=== PATIENT | male | born 1950 | race Caucasian/White ===

== ENCOUNTER 2016-10-26 05:35 | Inpatient (IN) | payer OTHER, MEDICARE ==
[2016-10-26] VITALS (15 sets, daily range): BP systolic 105–134; BP diastolic 54–79; PULSE 73–99; RESP 10–20; O2SAT 95–100
[~2016-10-26] VITALS: Ht 190.5 cm; Wt 99.0 kg
[~2016-10-26 05:35] MED LIST: ACETAMINOPHEN; ASPI-973 PO; CAR8A PO; INSU100V4 SUBQ; INSU200I SQ; LEVO200T6 PO; Lactated Ringer's 1,000 ML IV SCH; NAPR220C11 PO
[2016-10-26] MEDS ORDERED: Vancomycin Inj 1,500 MG in 0.9% Sodium Chloride 500 ML IV ONE (06:00)
[2016-10-26] MEDS ORDERED: CeFAZolin Inj 2 GM in IV Premix 1 EACH IV ONE (06:00)
[2016-10-26] MEDS ORDERED: Bupivacaine Liposome 1.3% 20 mL Inj INFILTRATE ONE (06:00)
[2016-10-26] MEDS ORDERED: Vancomycin 1,000mg/200 mL NS IV ONE (07:14)
[2016-10-26] MEDS ORDERED: Tranexamic Acid 100 mg/mL 10 mL Inj ONE ×2 (07:59→08:02)
[2016-10-26] MEDS ORDERED: Gentamicin 40 mg/mL 2 mL Inj IRRIGATION ONE (08:00)
[2016-10-26] MEDS ORDERED: Lactated Ringer's 500 ML IV PRN (08:56)
[2016-10-26] MEDS ORDERED: Lactated Ringer's 1,000 ML IV SCH (08:56)
--- NOTE | 2016-10-26 08:56 | PCM.HPANE ---
Patient Data Date of Service: Oct 26, 2016 (0725) Surgeon Admitting Provider: Attending Provider:Jonatan Weaver MD Primary Care Physician:Ishmael Jung MD Other Provider:Rishabh Ruff Anesthesia Reason for Visit Left Hip Arthritis Ht/WT & BMI Height (Feet): 6 Height (Inches): 3 Weight (Kilograms): 99 Body Mass Index 27.00 Allergies Coded Allergies: No Known Allergies (Unverified , 10/24/16) Past Anesthesia History Anesthesia History: Denies:: Abnormal Airway, Anesthesia Reactions, Difficult Intubation, Fam Anesthesia Reaction, Malignant Hyperthermia Diabetes History Hx Diabetes?: Yes Type of Diabetes: Type I MRSA MRSA: No Medications Blood Thinner: Aspirin Hypertension Medication: Yes Home Meds Incl Beta Cecy: No Reported Medications [tylenol xtra str] No Conflict Check1,000 Mg Q6H PRN For Pain 10/24/16 Insulin Lispro (Humalog Kwikpen)200 Unit/Ml (3 Ml) Insuln.pfx36-10 Unit SQ PRN sliding scale blood glucose 10/24/16 Doxazosin (Cardura)8 Mg Tablet8 Mg PO HS Ref 0 10/24/16 Insulin Detemir (Levemir U100 Insulin Vial)100 Unit/1 Ml Vial30 Unit SUBQ QPM # 1 VIAL Ref 0 10/24/16 Insulin Detemir (Levemir U100 Insulin Vial)100 Unit/1 Ml Vial15 Unit SUBQ QAM # 1 VIAL Ref 0 10/24/16 Levothyroxine 200 Mcg [id number] Mcg PO DAILY Ref 0 10/24/16 Aspirin 81 Mg Gvpzio69 Mg PO DAILY Ref 0 10/24/16 Naproxen Sodium (Aleve)220 Mg [id number] Mg PO BID 10/24/16 History HEENT History: Positive for:: Hearing Problem Denies:: Abnormal Airway Cataracts (not yet surgically treated ) Difficult Intubation Dysphagia Glaucoma Sinus Problem TMJ Teeth Condition: Missing Teeth Hx of Heart Problems?: Yes Cardiovascular History: Positive for:: Hypertension Denies:: AICD Abdominal Aortic Aneurism Atrial Fibrillation Cardiac Surgery Edema Heart Murmur Irregular Heartbeat Pacemaker Peripheral Vascular Rheumatic Fever Hx of Respiratory Problem?: No Respiratory History: Denies:: Asthma COPD Emphysema Oxygen Administration Pneumonia (as child only) Pulmonary Embolism Tuberculosis Use of C-PAP Machine Use of Inhalers / NEBS Hx Neurologic Problems?: No Neurological History: Denies:: Alzheimer's Disease CVA Headaches Multiple Sclerosis Parkinson's Disease Seizures Hx of GI Problems?: No Gastrointestinal History: Denies:: Cirrhosis Gall Bladder Disease Gastroesphageal Reflux Gastrointestinal Bleeding Heartburn Hepatitis Hiatal Hernia Liver Disease Rectal Bleeding Hx of Problems?: No Genitourinary History: Denies:: Kidney Stones Urinary Tract Infection HX of Peritoneal Dialysis: No Male Hx: Positive for:: Prostate Problems (BPH) Denies:: Scrotal Mass Testicular Surgery Skin History: Denies:: History Skin Disorders? Pressure Ulcers Hx Musculoskeletal Problems?: Yes Musculoskeletal History: Positive for:: Musculoskeletal Trauma (left hip current admission problem) Osteoarthritis Denies:: Back Injury Fibromyalgia Joint Replacement Systemic Lupus Hx of Psycho/Social Problems?: No Psycho Social History: Denies:: Anxiety Hx Depression Hx Surgeries?: Yes (appe, knee scope, tonsil) Hx Any Other Health Problems?: Yes Other History: Positive for:: Thyroid Disease (on meds) Denies:: Cancer History Blood Transfusions: Positive for:: Accept Blood Products? Denies:: Blood Transfusions Hx Diabetes: Yes Hx Alcohol Use: YesAlcoholic Drinks Per Day: 3-4 beers weeklyHx Substance Use : NoHave You Smoked inLast 12 mo: No (chews nicorette gum) Stop/Bang S-Snoring: Do You Snore Loudly: No T-Tired: feel tired, fatigued: No O-Obsered: Observed not breath: No P-Blood Pressure: treated: Yes B- Body Mass Index > 35 kg/m2: No A- Age over 50: Yes N- Neck Large Circumference: No G- Gender Male: Yes MARCO ANTONIO Total Score: 3 Risk Assessment Category Category 1A: Patient has history of documented sleep apnea, and HAS NOT received any narcotic, sedative or anesthesia administration during this stay. Category 1B: Patient has history of documented sleep apnea, and HAS received any narcotic , sedative or anesthesia administration during this stay Category 2: Patient has SUSPECTED Obstructive Sleep Apnea, and HAS received any narcotic , sedative or anesthesia administration during this stay. Category 3: Patient has SUSPECTED Obstructive Sleep Apnea and HAS NOT received narcotic, sedative or anesthesia administration during this stay. Category 4: Outpatient in Procedural Areas with known sleep apnea or who screen positive for High Risk via the STOP/BANG questionnaire. Exam Exam Vital Signs Vital Signs Date Time Temp Pulse Resp B/P Pulse Ox O2 Delivery O2 Flow Rate FiO2 10/26/16 06:27 36.5 74 16 122/54 100 Room Air General Appearance: Alert, Oriented X3, Cooperative, No Acute Distress HEENT/AIRWAY: MP 2 Lungs: Clear to Auscultation Heart: Exam Unremarkable Plan Impression Patient chart reviewed, patient interviewed and anesthestic plan with risks, benefits, and alternatives discussed, and informed consent obtained. NPO Status: 0200 10/26 ASA Physical Status: ASA3 Severe Disease (IDDM) Anesthetic Plan: SAB Bene/Risks/Altern/Consents: Yes HP Complete Prior to Induction: Yes Patrick Omalley MD Oct 26, 2016 08:56
[2016-10-26] MEDS ORDERED: Dexamethasone 4 mg/mL Inj IVPUSH PRN (09:00)
[2016-10-26] MEDS ORDERED: EPHEDrine Sulfate 50 mg/mL Inj IVPUSH PRN (09:00)
[2016-10-26] MEDS ORDERED: Phenylephrine 10,000 mCg/mL Inj IVPUSH PRN (09:00)
[2016-10-26] MEDS ORDERED: MetoCLOpramide 5 mg/mL 2 mL Inj IVPUSH PRN ×2 (09:00→13:45)
[2016-10-26] MEDS ORDERED: fentaNYL-PF 50 mCg/mL 2 mL Inj IVPUSH PRN (09:00)
[2016-10-26] MEDS ORDERED: HYDROmorphone 1 mg/mL Inj IVPUSH PRN (09:00)
[2016-10-26] MEDS ORDERED: Ondansetron 2 mg/mL 2 mL Inj IVPUSH PRN ×2 (09:00→13:45)
[2016-10-26] MEDS ORDERED: Lactated Ringer's 1,000 ML IV ONE ×2 (09:15→10:30)
[2016-10-26] MEDS ORDERED: Vancomycin 1,000 mg Inj IRRIGATION ONE (09:33)
[2016-10-26] MEDS ORDERED: Bupivacaine-MPF 0.25%/EPI 30 mL Inj INJ ONE (10:30)
--- NOTE | 2016-10-26 11:56 | PCM.ANEP1 ---
Post Anesthesia Phase 1 PACU Phase 1 Assessment Date of Service: Oct 26, 2016 (0725) Vital Signs Vital Signs Date Time Temp Pulse Resp B/P Pulse Ox O2 Delivery O2 Flow Rate FiO2 10/26/16 11:45 36.0 80 12 111/64 100 Nasal Cannula 2 10/26/16 11:30 86 13 111/76 100 Nasal Cannula 2 10/26/16 11:15 81 11 114/60 100 Nasal Cannula 2 10/26/16 11:10 79 10 110/60 100 Nasal Cannula 2 10/26/16 11:05 94 14 121/70 99 Nasal Cannula 2 10/26/16 11:00 99 16 129/73 100 Nasal Cannula 4 10/26/16 10:57 36.1 98 20 134/79 100 Nasal Cannula 4 10/26/16 06:27 36.5 74 16 122/54 100 Room Air Anesthetic Administered: GA Level of Alertness: Awake, talking BOWER's with Equal Strength: Yes Pain: No Nausea or Vomiting: No Oxygen Delivery: Room Air Lungs: Clear to Auscultation Dermatome Level: Full Sensation Patrick Omalley MD Oct 26, 2016 11:56
--- NOTE | 2016-10-26 11:56 | PCM.ANEP2 ---
Post Anesthesia Evaluation ASA/CMS Post Anesthesia VS in Patient's Normal Range?: Yes Resp Stable; Airway Patent?: Yes CV Function & Hydration Stable: Yes Mental Status Recovered?: Yes Pain control Satisfactory?: Yes N/V Control Satisfactory?: Yes Patrick Omalley MD Oct 26, 2016 11:56
--- NOTE | 2016-10-26 12:09 | DRSVH ---
PROCEDURE: X-RAY PELVIS ONE OR TWO VIEWS ([id number]) INDICATIONS: CHECK ALIGNMENT TECHNIQUE: 1 view of the lower pelvis acquired. COMPARISON: [facility], , XR PELVIS W LATERAL HIP LT, 08/16/2016, 12:03. FINDINGS: Bones: Patient is status post left hip arthroplasty, with hardware components in expected positions. The hip joint appears congruent. The visualized bony structures appear intact. There is an unchan ged appearance of multiple surgical fixation devices overlying the pelvis. Soft tissues: Overlying postoperative changes are noted. No suspicious soft tissue densities. IMPRESSION: Status post left hip arthroplasty as above. Dictated by: Chrissy Lara M.D. on 10/26/2016 at 11:07 Approved by: Chrissy aLra M.D. on 10/26/2016 at 11:08
[2016-10-26] MEDS ORDERED: Phenylephrine/NS 100 mCg/mL 10 mL Syringe IVPUSH ONE (13:13)
[2016-10-26] MEDS ORDERED: Ondansetron 2 mg/mL 2 mL Inj ONE (13:13)
[2016-10-26] MEDS ORDERED: EPHEDrine/NS 5 mg/mL 5 mL Syringe ONE (13:13)
[2016-10-26] MEDS ORDERED: fentaNYL-PF 50 mCg/mL 2 mL Inj ONE (13:13)
[2016-10-26] MEDS ORDERED: Propofol 10,000 mCg/mL 20 mL Inj ONE (13:13)
[2016-10-26] MEDS ORDERED: Ketorolac 15 mg/mL Inj ONE (13:42)
[2016-10-26] MEDS ORDERED: Magnesium Hydroxide 10 mL Oral Concentration PO PRN (13:45)
[2016-10-26] MEDS ORDERED: Vancomycin Dose per Pharmacist XX ONE (13:45)
[2016-10-26] MEDS ORDERED: diphenhydrAMINE 25 mg Capsule PO PRN (13:45)
[2016-10-26] MEDS ORDERED: Sodium Biphos-Phos 133 mL Enema RECTAL PRN (13:45)
[2016-10-26] MEDS ORDERED: HYDROcodone-APAP 5-325 mg Tablet PO PRN (13:45)
[2016-10-26] MEDS ORDERED: Glucose 40% Oral Gel 15 Gm Tube PO PRN (13:45)
[2016-10-26] MEDS: Lactated Ringer's 1,000 ML IV SCH (14:05)
[2016-10-26] MEDS ORDERED: LORazepam 0.5 mg Tablet PO PRN (14:15)
[2016-10-26] MEDS ORDERED: hydrOXYzine Inj 25 MG/1 mL SDV IM PRN (14:15)
[2016-10-26] MEDS: Ketorolac 15 mg/mL Inj IVPUSH SCH (14:30)
--- NOTE | 2016-10-26 14:51 | PCM.HPMED ---
Subjective Date of Service Oct 26, 2016 Primary Provider: Admitting Physician: Jonatan Weaver MD Primary Care Physician: Ishmael Jung MD Attending Physician: Jonatan Weaver MD Chief Complaint: Status post left total hip arthroplasty, take 1 diabetes mellitus, bpH, hypothyroidism History of Present Illness: This is a 65-year-old male with past medical history of uncontrolled diabetes type I diagnosed 15 years ago, hypothyroidism, BPH presenting after undergoing left total hip arthroplasty. Is currently rather drowsy in the room talking in a very slow paced. He is able to do most of the information however. He states that he fell from the back of a pickup truck on 08/15/2015 and shattered his pelvis and broke his hip. States that this is surgery #2 past one was done in [facility]. He used to have better control over his diabetes prior to his fall. He takes 30 units at night 20 units in the morning of Levemir. Correctional mealtime insulin. He sees Dr. PARTIDA in the [facility] Currently he says that his pain is under control. He denies recent fevers, chills, diarrhea, nausea vomiting, any other infections. All other ROS negative except as stated here. Review of Systems: ROS as mentioned above Allergies Coded Allergies: No Known Allergies (Unverified , 10/24/16) Home Medications Medications include aspirin, naproxen, levothyroxine, Levemir 30 units every afternoon and 20 units every morning plus correctional sliding scale insulin. Cardura for BPH PMH Type I diabetes uncontrolled, BPH, hypothyroidism Surgical History Appendectomy, tonsillectomy, metal in pelvis during a prior surgery? 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, former smoker used to smoke 1 pack per day 3-4 beers a week denies recreational drugs Social History Hx Alcohol Use: Yes Alcoholic Drinks Per Day: 3-4 beers weekly Hx Substance Use: No Living Arrangement: with Family Exam Vital Signs Vital Sign - Last Date Time Temp Pulse Resp B/P Pulse Ox O2 Delivery O2 Flow Rate FiO2 10/26/16 13:42 36.3 85 18 116/71 97 Room Air 10/26/16 11:30 2 Exam Gen.: Laying in bed and appears drowsy HEENT: Normocephalic, atraumatic Neck: Negative for JVD, trachea is midline Heart: Regular rate and rhythm no S3-S4 sounds Lungs: Clear to auscultation no crackles or wheezes Abdomen: Obese, normal bowel sounds nondistended nontender Extremities: Negative for edema Vascular: 2+ dorsalis pedis pulse Neurological: No altered sensation in feet per patient Lab and Diagnostics Labs Laboratory Tests Test 10/26/16 14:20 10/26/16 14:25 Urine Color Straw (YELLOW) Urine Appearance Hazy (CLEAR,HAZY) Urine pH 7.0 (5.0-8.0) Urine Specific [place] 1.015 (1.003-1.035) Urine Protein Negativemg/dL (NEG,TRACE) Urine Glucose (UA) 100mg/dL (NEGATIVE) Urine Ketones 15mg/dL (NEGATIVE) Urine Occult Blood Negative (NEGATIVE) Urine Nitrite Negative (NEGATIVE) Urine Bilirubin Negative (NEGATIVE) Urine Urobilinogen Normalmg/dL (NORMAL) Urine Leukocyte Esterase Negative (NEGATIVE) Urine RBC 0-2/hpf (0-2) Urine WBC 0-5/hpf (0-5) Urine Epithelial Cells Occasional/hpf (NONE-MOD) Urine Crystals None seen (NONE SEEN) Urine Bacteria None/hpf (NONE-FEW) Urine Hyaline Casts None/lpf (NONE) Urine Granular Casts None seen (NONE SEEN) Urine Waxy Casts None seen (NONE SEEN) Urine Red Blood Cell Casts None seen (NONE SEEN) Urine White Blood Cell Casts None seen (NONE SEEN) Urine Mucus None seen (None Seen) Urine Trichomonas None seen (NONE SEEN) Urine Yeast None (NONE SEEN) Urinalysis Comment None Urine Culture Reflexed Not indicated Sodium Level 132mEq/L (134-144) Potassium Level 4.4mEq/L (3.5-5.2) Chloride Level 99mEq/L (97-108) Carbon Dioxide Level 20mmol/L (18-29) Blood Urea Nitrogen 17mg/dL (8-27) Creatinine 0.65mg/dL (0.76-1.27) Estimat Glomerular Filtration Rate 131mL/min (>59) Glucose Level 184mg/dL (60-99) Calcium Level 8.0mg/dL (8.5-10.1) Hold Song Top Tube Received (Received) X-Rays, CTs and MRIs [facility] Diagnostic [place] [address] Patient Name: ROSARIO CURTIS MR#: [id number] Location: [facility] Ordering Phys: Jonatan Weaver MD Date of Service: 10/26/16 1115 PROCEDURE: X-RAY PELVIS ONE OR TWO VIEWS ([id number]) INDICATIONS: CHECK ALIGNMENT TECHNIQUE: 1 view of the lower pelvis acquired. COMPARISON: [facility], CR, XR PELVIS W LATERAL HIP LT, 08/16/2016 , 12:03. FINDINGS: Bones: Patient is status post left hip arthroplasty, with hardware components in expected positions. The hip joint appears congruent. The visualized bony structures appear intact. There is an unchanged appearance of multiple surgical fixation devices overlying the pelvis. Soft tissues: Overlying postoperative changes are noted. No suspicious soft tissue densities. IMPRESSION: Status post left hip arthroplasty as above. Dictated by: Chrissy Lara M.D. on 10/26/2016 at 11:07 Approved by: Chrissy Lara M.D. on 10/26/2016 at 11:08 Assessment & Plan This is a pleasant 65-year-old male with past medical history of an accidental fall in 2016 and some prior orthopedic surgery, DM type II, hypothyroidism, BPH presenting after status post left total hip arthroplasty. Acute conditions: Assessment #1 status post left total hip arthroplasty -- Ortho will be managing his pain and physical therapy -- PT/OT Chronic conditions: DM 1 uncontrolled: -- We will start him on home insulin -20% with moderate sliding scale. His speech to carb counting based insulin tomorrow a.m. -- Before meals at bedtime checks BPH: Continue her medication Hypothyroidism: Continue his medication Disposition: When orthopedic surgery clears him he will go home Pain Evaluation: Adequate Pain Control Resuscitation Status: CPR: Attempt Resuscitation Sandra Randolph DO Oct 26, 2016 14:50
[2016-10-26 15:22] LABS: APPEARANCE,URINE HAZY (CLEAR,HAZY); COLOR,URINE STRAW (YELLOW); OCCULT BLOOD,URINE NEGATIVE (NEGATIVE); UROBILINOGEN,URINE NORMAL (NORMAL)
[2016-10-26] MEDS: CeFAZolin Inj 2 GM in IV Premix 1 EACH IV SCH (16:55)
[2016-10-26] MEDS: Insulin LISPRO 300 Unit/3 mL Inj SUBQ SCH ×2 (18:20→21:09)
[2016-10-26] MEDS: oxyCODONE-Acetamin 5-325 mg Tablet PO PRN (18:26)
[2016-10-26] MEDS: hydrOXYzine Pamoate 25 mg Capsule PO PRN (20:22)
[2016-10-26] MEDS ORDERED: Insulin GLARgine 100 Unit/mL Syringe SUBQ SCH ×2 (21:00)
[2016-10-27] MEDS: CeFAZolin Inj 2 GM in IV Premix 1 EACH IV SCH (00:25)
[2016-10-27 00:33] VITALS: BP 100/60; PULSE 87; RESP 18; O2SAT 96
--- NOTE | 2016-10-27 01:37 | OP ---
[address] [address] OPERATIVE REPORT PATIENT: ROSARIO CURTIS : 1950 MR#: [id number] ADMIT: 10/26/2016 JOB ID: [id number] DATE OF SURGERY: 10/26/2016 PREOPERATIVE DIAGNOSIS(ES): Severe arthritis, left hip status post acetabular fracture with extensive hardware in the left hip. POSTOPERATIVE DIAGNOSIS(ES): Severe arthritis, left hip status post acetabular fracture with extensive hardware in the left hip. PROCEDURES: 1. Left total hip replacement. 2. Deep hardware removal from the left hip. SURGEON: Jonatan Weaver MD DIRECTOR ORANGE: Amparo Aguilar PA-C Publishing Director required due to the complexity of the operation. INDICATIONS: This gentleman has had severe disability related to his hip arthritis. He had a complex acetabular fracture taken care of at [facility], extensive hardware replacement through an anterior approach. The hip then became very arthritic with protrusion and progressive severe arthritis. The patient has failed to respond to conservative treatment, finds the pain intolerable, and wishes to proceed with a total hip replacement and hardware removal as indicated. He understands accepts the potential for risks and complications, which include but are not limited to infection, thromboembolic and neurovascular events, as well as a potential for dislocation, instability, and leg length inequality. Understanding these, he wishes to proceed. DESCRIPTION OF PROCEDURE: The patient was prepped and draped in the usual sterile fashion. A posterolateral approach was made. The hip dissection was carried down. External rotators tagged and released. Capsule T'd, tagged and released. Hip was dislocated. Standard femoral neck cut was made. Progressive reaming of the acetabular component was performed. On initial reaming, metal was encountered. The wound was explored, and a drill bit was encountered, likely broken off from the acetabular fixation. This piece was removed. Progressive reaming to a 61 and two screws were encountered. An impactor was utilized to remove these screws from the acetabulum by impacting them into the ischium. This allowed for further reaming utilizing a 61. A 61 trial was fit. Bone graft was obtained after a central reamer had roughed up the central portion of the wound, which was filled with some soft tissue and irregular cartilaginous substance from the healed fracture. This area was then reverse reamed impacting excellent quality cancellous graft obtained from the femoral head into the area. The cup was firmly seated, and a single screw was utilized with an excellent bite for derotational control and stability for the cup. It was a 62 outer bearing cup. A box osteotome utilized on the femur with progressive broaching, and a 10-mm broach was eventually chosen. The canal fill was checked, and at 15 degrees anteversion. The stem was placed slightly oblique from the long axis of the canal but had a complete fill and was noted to be quite stable. Trial reduction was performed. A 0 neck length, dual mobility cup provided fabulous stability, and the final construct was assembled. The hip was dislocated. Closure was performed with #1 braided nylon for the deep fascia and capsule followed by closure with #2 Quill, 2-0 Vicryl, 3-0 and a 4-0 intracuticular stitch utilized for the skin. Patient was taken to the recovery room in stable condition. Tolerated the procedure well. There were no complications.
[2016-10-27] MEDS: Ketorolac 15 mg/mL Inj IVPUSH SCH (02:43)
[2016-10-27] MEDS ORDERED: Vancomycin Inj 1,250 MG in 0.9% Sodium Chloride 250 ML IV ONE (05:00)
[2016-10-27 05:05] LABS: BASOPHILS % (AUTO) 0.4 % (0-3); EOSINOPHILS % (AUTO) 0.9 % (0-5); Mean Corpuscular Hemoglobin 29.4 pg (27.0-35.0); Mean Corpuscular Volume 87.6 fL (81-100); NEUTROPHILS % (AUTO) 76.7 % (40-74); Platelet Count 135 bil/L (150-400)
[2016-10-27 05:40] VITALS: BP 116/68; PULSE 90; RESP 20; O2SAT 97
--- NOTE | 2016-10-27 06:11 | PCM.PNORTH ---
Subjective Date of Service: Oct 27, 2016 Visit Information: Reason for Visit Left Hip Arthritis Surgery/Surgery Date Post-Op Day # Date of Admission: Oct 26, 2016 at 13:12 Hospital Day # Subjective Found patient awake and alert this morning and sitting up in bed. No complaints of pain at this time. Discussed discharge plans on postoperative day #3. Encouraged patient to participate with formal physical therapy for this results regarding mobility and safety. Postop General: No Complaints, No Shortness of Breath, No Chest Pain Pain Management: PO Objective Exam Objective Alert and oriented 3 and pleasant. Patient is supine well positioned with pillow between knees. Interoperative dressing is clean dry and intact Calf and thigh are soft and nontender Toe wiggle and sensation are intact in left lower extremity distally Emery is absent Vital Signs and I/O Vital Sign - Last Date Time Temp Pulse Resp B/P Pulse Ox O2 Delivery O2 Flow Rate FiO2 10/27/16 05:40 37.1 90 20 116/68 97 Room Air 10/26/16 11:30 2 Intake and Output 10/26/16 10/26/16 10/27/16 Cumulative From/Thru 15:00 23:00 07:00 10/24/16 15:48 - 10/27/16 04:44 Intake Total 3760 ml 1068 ml 673 ml 5501 ml Output Total 1100 ml 600 ml 1700 ml Balance 2660 ml 468 ml 673 ml 3801 ml Intake Oral 800 ml 800 ml IV Total 3760 ml 268 ml 673 ml 4701 ml Output Urine Total 400 ml 600 ml 1000 ml Estimated Blood Loss 700 ml 700 ml Lab & Micro Results Laboratory Tests Test 10/26/16 14:20 10/26/16 14:25 10/27/16 04:30 Urine Color Straw (YELLOW) Urine Appearance Hazy (CLEAR,HAZY) Urine pH 7.0 (5.0-8.0) Urine Specific [place] 1.015 (1.003-1.035) Urine Protein Negativemg/dL (NEG,TRACE) Urine Glucose (UA) 100mg/dL (NEGATIVE) Urine Ketones 15mg/dL (NEGATIVE) Urine Occult Blood Negative (NEGATIVE) Urine Nitrite Negative (NEGATIVE) Urine Bilirubin Negative (NEGATIVE) Urine Urobilinogen Normalmg/dL (NORMAL) Urine Leukocyte Esterase Negative (NEGATIVE) Urine RBC 0-2/hpf (0-2) Urine WBC 0-5/hpf (0-5) Urine Epithelial Cells Occasional/hpf (NONE-MOD) Urine Crystals None seen (NONE SEEN) Urine Bacteria None/hpf (NONE-FEW) Urine Hyaline Casts None/lpf (NONE) Urine Granular Casts None seen (NONE SEEN) Urine Waxy Casts None seen (NONE SEEN) Urine Red Blood Cell Casts None seen (NONE SEEN) Urine White Blood Cell Casts None seen (NONE SEEN) Urine Mucus None seen (None Seen) Urine Trichomonas None seen (NONE SEEN) Urine Yeast None (NONE SEEN) Urinalysis Comment None Urine Culture Reflexed Not indicated Sodium Level 132mEq/L (134-144) 132mEq/L (134-144) Potassium Level 4.4mEq/L (3.5-5.2) 4.2mEq/L (3.5-5.2) Chloride Level 99mEq/L (97-108) 99mEq/L (97-108) Carbon Dioxide Level 20mmol/L (18-29) 21mmol/L (18-29) Blood Urea Nitrogen 17mg/dL (8-27) 16mg/dL (8-27) Creatinine 0.65mg/dL (0.76-1.27) 0.94mg/dL (0.76-1.27) Estimat Glomerular Filtration Rate 131mL/min (>59) 86mL/min (>59) Glucose Level 184mg/dL (60-99) 183mg/dL (60-99) Calcium Level 8.0mg/dL (8.5-10.1) 8.2mg/dL (8.5-10.1) Hold Song Top Tube Received (Received) White Blood Count 7.4th/mm3 (3.8-10.1) Red Blood Count 3.54mil/mm3 (4.40-5.80) Hemoglobin 10.4g/dL (13.8-17.2) Hematocrit 31.0% (41.0-50.0) Mean Corpuscular Volume 87.6fL (81-100) Mean Corpuscular Hemoglobin 29.4pg (27.0-35.0) Mean Corpuscular Hemoglobin Concent 33.5% (32.0-37.0) Red Cell Distribution Width 13.0% (12.3-15.4) Platelet Count 135bil/L (150-400) Neutrophils (%) (Auto) 76.7% (40-74) Lymphocytes (%) (Auto) 14.6% (14-46) Monocytes (%) (Auto) 7.0% (4-12) Eosinophils (%) (Auto) 0.9% (0-5) Basophils (%) (Auto) 0.4% (0-3) Result Diagram: 10/27/1642910/27/16429 General Appearance: Alert, Oriented X3, No Acute Distress Extremities: No Compartment Syndrom Noted, Thigh & Calf Soft/Nontender Postop Sensory Motor: Distal Motor Intact, Movement in Toes, Distal Sensation Intact Activity: Activity per PT, Ambulate with PT (weight-bear as tolerated on the left lower extremity using a front wheeled walker) Catheters: None Assessment & Plan Plan Postop day #1 from left total hip arthroplasty with removal of broken drill bit from previous hip surgery performed on 10/26/[address] Jonatan Weaver. Weightbearing as tolerated on the left lower extremity using frontwheel walker. Continue formal physical therapy for mobility, gait and safety. He has arranged to begin outpatient physical therapy post discharge. Continue pain control with Benjamin 12/06/2024 or Percocet 12/06/2024 with Vistaril as needed. Continue Lovenox 40 mg subcutaneous daily for a total of 10 days postop with transition to ASA 81 mg daily for an additional 4 weeks postop for DVT prophylaxis. Interoperative dressings clean dry and intact and will be changed tomorrow on postop day #2, 10/28/2016. Anticipate discharge to home on her before postop day #3 with spouse as caregiver. VTE Prophylaxis: Sub-Q Enoxaparin (Lovenox 40 mg subcutaneous daily 10 days postop with transition to ASA 81 mg daily for an additional 4 weeks postop for DVT prophylaxis.) Resuscitation Status: CPR: Attempt Resuscitation Tomasz Hansen PA-C Oct 27, 2016 06:11
[2016-10-27] MEDS: Lactated Ringer's 1,000 ML IV SCH ×2 (06:45→23:25)
[2016-10-27] MEDS: oxyCODONE-Acetamin 5-325 mg Tablet PO PRN ×4 (07:46→22:01)
[2016-10-27] MEDS: hydrOXYzine Pamoate 25 mg Capsule PO PRN ×3 (07:46→18:33)
[2016-10-27] MEDS: Insulin LISPRO 300 Unit/3 mL Inj SUBQ SCH ×4 (07:49→21:38)
[2016-10-27 07:56] VITALS: BP 122/71; PULSE 83; RESP 16; O2SAT 98
[2016-10-27] MEDS ORDERED: Insulin GLARgine 100 Unit/mL Syringe SUBQ SCH ×3 (08:30→21:00)
[2016-10-27 11:18] VITALS: BP 104/63; PULSE 86; RESP 16; O2SAT 97
[2016-10-27 14:30] VITALS: BP 110/59; PULSE 88; RESP 18; O2SAT 96
--- NOTE | 2016-10-27 19:35 | PCM.PNMED ---
Subjective Date of Service Oct 27, 2016 Subjective Patient is seen and examined. He is excited that R though is wanting to Discharge him tomorrow. He is up and ambulating. He is using a walker. His blood glucose was elevated today and his night insulin is increased to 30 units. He took 13-14 units extra insulin sliding scale +40 units total Lantus yesterday. Denies overnight fevers, chills, nausea, vomiting. Denies numbness and tingling in the left hip R lower extremity Exam Vital Signs Vital Sign - Last Date Time Temp Pulse Resp B/P Pulse Ox O2 Delivery O2 Flow Rate FiO2 10/27/16 14:30 36.9 88 18 110/59 96 Room Air 10/26/16 11:30 2 Intake and Output 10/26/16 10/26/16 10/27/16 Cumulative From/Thru 15:00 23:00 07:00 10/24/16 15:48 - 10/27/16 06:20 Intake Total 3760 ml 1068 ml 873 ml 5701 ml Output Total 1100 ml 600 ml 900 ml 2600 ml Balance 2660 ml 468 ml -27 ml 3101 ml Intake Oral 800 ml 200 ml 1000 ml IV Total 3760 ml 268 ml 673 ml 4701 ml Output Urine Total 400 ml 600 ml 900 ml 1900 ml Estimated Blood Loss 700 ml 700 ml Exam Gen.: No acute distress laying in bed HEENT: Normocephalic, atraumatic Heart regular rate and rhythm no S3-S4 sounds neck negative for JVD, trachea is midline Lungs clear to auscultation bilaterally no crackles or wheezes appreciated Abdomen: Obese, normal bowel sounds nontender Extremities negative for edema Neuro: Negative for altered sensation in legs, unable to elicit deep tendon reflexes Psych: Negative for anxiety Lab and Diagnostics Result Diagram: 10/27/16 0430 10/27/16 0430 X-Rays, CTs and MRIs [facility] Diagnostic [place] [address] Patient Name: ROSARIO CURTIS MR#: [id number] Location: [facility] Ordering Phys: Jonatan Weaver MD Date of Service: 10/26/16 1115 PROCEDURE: X-RAY PELVIS ONE OR TWO VIEWS ([id number]) INDICATIONS: CHECK ALIGNMENT TECHNIQUE: 1 view of the lower pelvis acquired. COMPARISON: [facility], CR, XR PELVIS W LATERAL HIP LT, 08/16/2016 , 12:03. FINDINGS: Bones: Patient is status post left hip arthroplasty, with hardware components in expected positions. The hip joint appears congruent. The visualized bony structures appear intact. There is an unchanged appearance of multiple surgical fixation devices overlying the pelvis. Soft tissues: Overlying postoperative changes are noted. No suspicious soft tissue densities. IMPRESSION: Status post left hip arthroplasty as above. Dictated by: Chrissy Lara M.D. on 10/26/2016 at 11:07 Approved by: Chrissy Lara M.D. on 10/26/2016 at 11:08 Assessment & Plan This is a pleasant 65-year-old male with past medical history of an accidental fall in 2016 and some prior orthopedic surgery, DM type II, hypothyroidism, BPH presenting after status post left total hip arthroplasty. Acute conditions: Assessment #1 status post left total hip arthroplasty -- Ortho will be managing his pain and physical therapy -- PT/OT Chronic conditions: DM 1 uncontrolled: -- We will start him on home insulin -20% with moderate sliding scale: Increasing nighttime insulin to 30 units which is his home dose -- Before meals at bedtime checks BPH: Continue his home medication Hypothyroidism: Continue his medication Disposition: When orthopedic surgery clears him he will go home Pain Evaluation: Adequate Pain Control VTE Prophylaxis: Sub-Q Enoxaparin (Lovenox 40 mg subcutaneous daily 10 days postop with transition to ASA 81 mg daily for an additional 4 weeks postop for DVT prophylaxis.) VTE Mechanical Devices: Intermittant Pneumatic CD Resuscitation Status: CPR: Attempt Resuscitation Sandra Randolph DO Oct 27, 2016 19:35
[2016-10-27 20:45] VITALS: BP 126/69; PULSE 97; RESP 16; O2SAT 97
[2016-10-28 04:35] VITALS: BP 123/73; PULSE 88; RESP 16; O2SAT 97
[2016-10-28 06:46] LABS: BASOPHILS % (AUTO) 0.4 % (0-3); EOSINOPHILS % (AUTO) 1.1 % (0-5); MONOCYTES % (AUTO) 7.6 % (4-12); Mean Corpuscular Hemoglobin 29.4 pg (27.0-35.0); Mean Corpuscular Volume 87.5 fL (81-100); NEUTROPHILS % (AUTO) 75.6 % (40-74); Platelet Count 159 bil/L (150-400)
[2016-10-28] MEDS ORDERED: Insulin GLARgine 100 Unit/mL Syringe SUBQ SCH (08:30)
[2016-10-28] MEDS: Insulin LISPRO 300 Unit/3 mL Inj SUBQ SCH (08:59)
--- NOTE | 2016-10-28 09:05 | PCM.DIMED ---
Discharge Instructions Date of Service Oct 28, 2016 Dates of Hospitalization Oct 26, 2016 at 13:12 Discharge Diagnosis Discharge Diagnosis L total hip althroplasty, Type I DM uncontrolled, Hypothyroidism, BPH Diet Diabetic Activity Other Call your provider Fever or Chills, Shortness of breath, Bleeding, Chest pain, Vomitting, Excessive diarrhea, Weakness (unilateral), Other Patient Instructions Weightbearing: Weightbearing as tolerated with walker DVT prophylaxis: Lovenox 40 mg subcutaneous 2 weeks followed by aspirin 81 mg twice a day 4 weeks Physical therapy for transfers, progressive ambulation, therapeutic exercise Wound care: Dressing changed today by PA Discharge plan: Discharge home today Discharge instructions are reviewed with the patient. Follow-up plan: In 2 weeks at [facility] with PA for wound check and at [address] Weaver with x-rays Follow-up plan Follow up with PCP in 2 weeks Sandra Randolph DO Oct 28, 2016 09:05 VTE Prophylaxis: Sub-Q Enoxaparin (Lovenox 40 mg subcutaneous daily 10 days postop with transition to ASA 81 mg daily for an additional 4 weeks postop for DVT prophylaxis.) Resuscitation Status: CPR: Attempt Resuscitation Tomasz Hansen PA-C Oct 27, 2016 06:11 Addendum: Tomasz Hansen PA-C on 10/27/16 @ 06:56 Amendment to assessment and plan: Re: DVT prophylaxis this should read "ASA 81 mg EC by mouth twice a day for an additional 4 weeks postop for DVT prophylaxis". Addendum: Tomasz Hansen PA-C on 10/27/16 @ 06:59 Sandra Randolph DO Oct 28, 2016 09:05
[2016-10-28] MEDS: oxyCODONE-Acetamin 5-325 mg Tablet PO PRN (09:11)
--- NOTE | 2016-10-28 09:38 | PCM.PNORTH ---
Subjective Date of Service: Oct 28, 2016 Visit Information: Reason for Visit Left Hip Arthritis Surgery/Surgery Date left total hip arthroplasty Post-Op Day # 2 Date of Admission: Oct 26, 2016 at 13:12 Hospital Day # Subjective Patient states he has incisional pain but it is well-controlled with Percocet area he ambulated quite well with physical therapy yesterday 100 250 feet. He will work with therapy this morning to work on steps. He would like to go home today. Patient has outpatient physical therapy already scheduled. He is doing so well however he is not sure he wants to go to therapy. Postop General: No Complaints, No Shortness of Breath, No Chest Pain Pain Management: PO Objective Exam Objective Patient is seen sitting up in bed Vital Signs and I/O Vital Sign - Last Date Time Temp Pulse Resp B/P Pulse Ox O2 Delivery O2 Flow Rate FiO2 10/28/16 04:35 37.2 88 16 123/73 97 Room Air 10/26/16 11:30 2 Intake and Output 10/27/16 10/27/16 10/28/16 Cumulative From/Thru 15:00 23:00 07:00 10/24/16 15:48 - 10/28/16 06:46 Intake Total 1140 ml 600 ml 7441 ml Output Total 900 ml 1400 ml 4900 ml Balance 240 ml -800 ml 2541 ml Intake Oral 1140 ml 600 ml 2740 ml IV Total 0 ml 4701 ml Output Urine Total 900 ml 1400 ml 4200 ml Estimated Blood Loss 700 ml Lab & Micro Results Laboratory Tests Test 10/28/16 06:20 White Blood Count 7.9th/mm3 (3.8-10.1) Red Blood Count 3.43mil/mm3 (4.40-5.80) Hemoglobin 10.1g/dL (13.8-17.2) Hematocrit 30.0% (41.0-50.0) Mean Corpuscular Volume 87.5fL (81-100) Mean Corpuscular Hemoglobin 29.4pg (27.0-35.0) Mean Corpuscular Hemoglobin Concent 33.7% (32.0-37.0) Red Cell Distribution Width 12.7% (12.3-15.4) Platelet Count 159bil/L (150-400) Neutrophils (%) (Auto) 75.6% (40-74) Lymphocytes (%) (Auto) 14.8% (14-46) Monocytes (%) (Auto) 7.6% (4-12) Eosinophils (%) (Auto) 1.1% (0-5) Basophils (%) (Auto) 0.4% (0-3) Sodium Level 133mEq/L (134-144) Potassium Level 4.6mEq/L (3.5-5.2) Chloride Level 98mEq/L (97-108) Carbon Dioxide Level 24mmol/L (18-29) Blood Urea Nitrogen 15mg/dL (8-27) Creatinine 0.93mg/dL (0.76-1.27) Estimat Glomerular Filtration Rate 87mL/min (>59) Glucose Level 209mg/dL (60-99) Calcium Level 8.6mg/dL (8.5-10.1) Total Bilirubin 0.6mg/dL (0.0-1.2) Aspartate Amino Transf (AST/SGOT) 14U/L (0-50) Alanine Aminotransferase (ALT/SGPT) 11U/L (0-44) Alkaline Phosphatase 59U/L (25-160) Total Protein 5.5g/dL (6.4-8.4) Albumin 3.0g/dL (3.4-5.0) Result Diagram: 10/28/1661910/28/16619 General Appearance: Alert, Oriented X3, Cooperative, No Acute Distress Extremities: Distal Pulses Palpable, No Compartment Syndrom Noted, Tenderness/ Swelling Noted (at incision site, as expected) Postop Sensory Motor: Distal Motor Intact, NVI Distally SURGICAL WOUND : Wound Location/Description Lateral left hip: Surgical dressing is removed. The wound is clean dry and intact. There is very slight serous drainage on the bandage. The wound is cleansed with hydrogen peroxide, Silverlon dressing is replaced and new Island dressing is applied. There is mild swelling of the proximal thigh, as expected. Dressing & Drainage Status: Changed Activity: Activity per PT, Ambulate with PT (weight-bear as tolerated on the left lower extremity using a front wheeled walker) Catheters: None Assessment & Plan Impression POD #2 left total hip arthroplasty Problems: Plan Weightbearing: Weightbearing as tolerated with walker DVT prophylaxis: Lovenox 40 mg subcutaneous 2 weeks followed by aspirin 81 mg twice a day 4 weeks Physical therapy for transfers, progressive ambulation, therapeutic exercise Patient is progressing very well with physical therapy. Wound care: Dressing changed today by ADELA Discharge plan: Discharge home today Discharge instructions are reviewed with the patient. Follow-up plan: In 2 weeks at [facility] with PA for wound check and at [address] Weaver with x-rays Pain Management: Percocet, Vistaril VTE Prophylaxis: Sub-Q Enoxaparin (Lovenox 40 mg subcutaneous daily 10 days postop with transition to ASA 81 mg daily for an additional 4 weeks postop for DVT prophylaxis.), SCDs Resuscitation Status: CPR: Attempt Resuscitation GassawayAmparo Strong PA-C Oct 28, 2016 09:38
[2016-10-28] MEDS ORDERED: OXYC1TAB24 PO (10:19)
[2016-10-28] MEDS ORDERED: ENOX40DI8 SUBQ (10:19)
[2016-10-28] MEDS ORDERED: DOCU-41 PO (10:19)
[2016-10-28] MEDS ORDERED: HYDR-3797 PO (10:19)
[2016-10-28] MEDS ORDERED: INSU100V4 SUBQ (10:54)
--- NOTE | 2016-10-28 12:55 | PCM.DC.ORT ---
Discharge Summary Date of Service: Oct 28, 2016 Date of Hospital Admission: Oct 26, 2016 at 13:12 Date of Surgery: Oct 26, 2016 Date of Discharge: Oct 28, 2016 Reason for Hospitalization: Left hip arthritis Procedures Performed: Left total hip arthroplasty Hospital Course: The patient was admitted to the hospital on 10/26/2016 and underwent the above procedure. Antibiotic prophylaxis consisting of Ancef and vancomycin. The surgeon was Dr. Weaver. A Emery was placed perioperatively. Patient tolerated the procedure well and was transferred to recovery room in stable condition. Emery was discontinued on postop day 1. Patient had physical therapy to work on ambulation and transfers. Weightbearing as tolerated with walker. Pain was managed with Dilaudid, Percocet, Vistaril, Toradol. DVT prophylaxis: Lovenox 40 mg subcutaneous. Patient progressed well with physical therapy and on POD-2 was discharged home with his to assist in his care. Follow-up: at [facility] 2 weeks postop for wound check and at [address] Weaver with x-ray Diagnosis at Time of Discharge Status post left total hip arthroplasty Problems: Disposition: Discharged home in stable condition Orthopedic Follow up Plan: In Two Weeks in my clinic Discharge Instructions: Weightbearing as tolerated on left lower extremity with walker DVT prophylaxis: Lovenox 40 mg subcutaneous injection for 10 more days. Then start taking aspirin 81 mg twice a day for 4 more weeks The patient may shower if the wound has no drainage present on 10/30/2016. Wound may be uncovered to shower. Let soap and water run over the wound, pat dry and apply a new dressing. Hip precaution positions to prevent dislocation: No flexing forward past 90, no crossing the legs at the knee. Sleep with a pillow between the knees in bed. Activity: Increase your walking a little more each day Prescriptions are written for Lovenox, Percocet, Vistaril, and Colace Follow up at [facility] in 2 weeks with PA for wound check and at [address] Weaver, with x-ray Docusate Sodium (Colace) 100 Mg Capsule 100 MG PO BID PRN PRN For Constipation Doxazosin (Cardura) 8 Mg Tablet 8 MG PO HS Enoxaparin Sodium (Enoxaparin Sodium) 40 Mg/0.4 Ml Syringe 40 MG SUBQ Q24 Hydroxyzine Pamoate (HydrOXYzine Pamoate) 25 Mg Capsule 25 MG PO Q4H PRN PRN For Spasm and/or Restlessness Insulin Detemir (Levemir U100 Insulin Vial) 100 Unit/1 Ml Vial 30 UNIT SUBQ QPM Insulin Detemir (Levemir U100 Insulin Vial) 100 Unit/1 Ml Vial 20 UNIT SUBQ QAM Insulin Lispro (Humalog Kwikpen) 200 Unit/Ml (3 Ml) Insuln.pen 15-20 UNIT SQ PRN sliding scale blood glucose Levothyroxine (Levothyroxine) 200 Mcg Tablet 225 MCG PO DAILY oxyCODONE-Acetaminophen 5-325 mg (oxyCODONE-Acetaminophen 5-325 mg) 1 Each Tablet 1-2 TAB PO Q4H PRN PRN For Pain Amparo Aguilar PA-C Oct 28, 2016 12:55
--- NOTE | 2016-10-30 10:31 | PCM.DC.MED ---
Discharge Summary Date of Service Oct 30, 2016 Dates of Hospitalization Date of Hospital Admission Oct 26, 2016 at 13:12 Date of Discharge: Oct 28, 2016 Providers: Admitting Physician: Jonatan Weaver MD Primary Care Physician: Ishmael Jung MD Attending Physician: Jonatan Weaver MD Diagnosis at Time of Discharge Diagnosis at Time of Discharge L total hip althroplasty, Type I DM uncontrolled, Hypothyroidism, BPH Procedures XRay, CTs & MRIs [facility] Diagnostic [place] [address] Patient Name: ROSARIO CURTIS MR#: [id number] Location: [facility] Ordering Phys: Jonatan Weaver MD Date of Service: 10/26/16 1115 PROCEDURE: X-RAY PELVIS ONE OR TWO VIEWS ([id number]) INDICATIONS: CHECK ALIGNMENT TECHNIQUE: 1 view of the lower pelvis acquired. COMPARISON: [facility], CR, XR PELVIS W LATERAL HIP LT, 08/16/2016 , 12:03. FINDINGS: Bones: Patient is status post left hip arthroplasty, with hardware components in expected positions. The hip joint appears congruent. The visualized bony structures appear intact. There is an unchanged appearance of multiple surgical fixation devices overlying the pelvis. Soft tissues: Overlying postoperative changes are noted. No suspicious soft tissue densities. IMPRESSION: Status post left hip arthroplasty as above. Dictated by: Chrissy Lara M.D. on 10/26/2016 at 11:07 Approved by: Chrissy Lara M.D. on 10/26/2016 at 11:08 Invasive Procedures L hip orthoplasty on 10/26/16 Brief History This is a 65-year-old male with past medical history of uncontrolled diabetes type I diagnosed 15 years ago, hypothyroidism, BPH presenting after undergoing left total hip arthroplasty. Is currently rather drowsy in the room talking in a very slow paced. He is able to do most of the information however. He states that he fell from the back of a pickup truck on 08/15/2015 and shattered his pelvis and broke his hip. States that this is surgery #2 past one was done in [facility]. He used to have better control over his diabetes prior to his fall. He takes 30 units at night 20 units in the morning of Levemir. Correction[employer] mealtime insulin. He sees Dr. PARTIDA in the [place] system Currently he says that his pain is under control. He denies recent fevers, chills, diarrhea, nausea vomiting, any other infections. All other ROS negative except as stated here. 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 Acute conditions: Assessment #1 status post left total hip arthroplasty -- Ortho managed his pain and physical therapy -- Medical management by the hospitalist team. -- PT/OT was ordered Chronic conditions: DM 1 uncontrolled: -- His BG levels were being monitored and insulin is being titrated. Patient and stated they had no interest in staying for BG control as he always had struggled with it and they can monitor him well at home. They were very impatient to leave the hospital on 10/28/15 AM. -- At the time of d/c, patient is on HS 30 U and 22 U in the AM +SSI -- Before meals at bedtime checks -- He will be discharged on his home regimen BPH: Continued his home medication Hypothyroidism: Continued his medication Exam Vital Signs (Last) Date Time Temp Pulse Resp B/P Pulse Ox O2 Delivery O2 Flow Rate FiO2 10/28/16 10:43 Room Air 10/28/16 04:35 37.2 88 16 123/73 97 10/26/16 11:30 2 Exam General: NAD, hard of hearing HEENT: NCAT Neck: Negative for JVD Heart: RRR, no S3/S4 sounds Lungs: CTA, no crackles or wheezes Abd: Obese, NT/ND, normal bowel sounds ExT: Neg for edema Psych: Neg for anxiety Neuro: No focal deficits Laboratory Tests 72 Hours Test 10/28/16 06:20 White Blood Count 7.9th/mm3 (3.8-10.1) Red Blood Count 3.43mil/mm3 (4.40-5.80) Hemoglobin 10.1g/dL (13.8-17.2) Hematocrit 30.0% (41.0-50.0) Mean Corpuscular Volume 87.5fL (81-100) Mean Corpuscular Hemoglobin 29.4pg (27.0-35.0) Mean Corpuscular Hemoglobin Concent 33.7% (32.0-37.0) Red Cell Distribution Width 12.7% (12.3-15.4) Platelet Count 159bil/L (150-400) Neutrophils (%) (Auto) 75.6% (40-74) Lymphocytes (%) (Auto) 14.8% (14-46) Monocytes (%) (Auto) 7.6% (4-12) Eosinophils (%) (Auto) 1.1% (0-5) Basophils (%) (Auto) 0.4% (0-3) Sodium Level 133mEq/L (134-144) Potassium Level 4.6mEq/L (3.5-5.2) Chloride Level 98mEq/L (97-108) Carbon Dioxide Level 24mmol/L (18-29) Blood Urea Nitrogen 15mg/dL (8-27) Creatinine 0.93mg/dL (0.76-1.27) Estimat Glomerular Filtration Rate 87mL/min (>59) Glucose Level 209mg/dL (60-99) Calcium Level 8.6mg/dL (8.5-10.1) Total Bilirubin 0.6mg/dL (0.0-1.2) Aspartate Amino Transf (AST/SGOT) 14U/L (0-50) Alanine Aminotransferase (ALT/SGPT) 11U/L (0-44) Alkaline Phosphatase 59U/L (25-160) Total Protein 5.5g/dL (6.4-8.4) Albumin 3.0g/dL (3.4-5.0) Test 10/26/16 14:20 10/26/16 14:25 10/27/16 04:30 10/28/16 06:20 Urine Color Straw (YELLOW) Urine Appearance Hazy (CLEAR,HAZY) Urine pH 7.0 (5.0-8.0) Urine Specific [place] 1.015 (1.003-1.035) Urine Protein Negativemg/dL (NEG,TRACE) Urine Glucose (UA) 100mg/dL (NEGATIVE) Urine Ketones 15mg/dL (NEGATIVE) Urine Occult Blood Negative (NEGATIVE) Urine Nitrite Negative (NEGATIVE) Urine Bilirubin Negative (NEGATIVE) Urine Urobilinogen Normalmg/dL (NORMAL) Urine Leukocyte Esterase Negative (NEGATIVE) Urine RBC 0-2/hpf (0-2) Urine WBC 0-5/hpf (0-5) Urine Epithelial Cells Occasional/hpf (NONE-MOD) Urine Crystals None seen (NONE SEEN) Urine Bacteria None/hpf (NONE-FEW) Urine Hyaline Casts None/lpf (NONE) Urine Granular Casts None seen (NONE SEEN) Urine Waxy Casts None seen (NONE SEEN) Urine Red Blood Cell Casts None seen (NONE SEEN) Urine White Blood Cell Casts None seen (NONE SEEN) Urine Mucus None seen (None Seen) Urine Trichomonas None seen (NONE SEEN) Urine Yeast None (NONE SEEN) Urinalysis Comment None Urine Culture Reflexed Not indicated Hold Song Top Tube Received (Received) Hemoglobin A1c 7.1% (4.8-5.6) White Blood Count 7.9th/mm3 (3.8-10.1) Red Blood Count 3.43mil/mm3 (4.40-5.80) Hemoglobin 10.1g/dL (13.8-17.2) Hematocrit 30.0% (41.0-50.0) Mean Corpuscular Volume 87.5fL (81-100) Mean Corpuscular Hemoglobin 29.4pg (27.0-35.0) Mean Corpuscular Hemoglobin Concent 33.7% (32.0-37.0) Red Cell Distribution Width 12.7% (12.3-15.4) Platelet Count 159bil/L (150-400) Neutrophils (%) (Auto) 75.6% (40-74) Lymphocytes (%) (Auto) 14.8% (14-46) Monocytes (%) (Auto) 7.6% (4-12) Eosinophils (%) (Auto) 1.1% (0-5) Basophils (%) (Auto) 0.4% (0-3) Sodium Level 133mEq/L (134-144) Potassium Level 4.6mEq/L (3.5-5.2) Chloride Level 98mEq/L (97-108) Carbon Dioxide Level 24mmol/L (18-29) Blood Urea Nitrogen 15mg/dL (8-27) Creatinine 0.93mg/dL (0.76-1.27) Estimat Glomerular Filtration Rate 87mL/min (>59) Glucose Level 209mg/dL (60-99) Calcium Level 8.6mg/dL (8.5-10.1) Total Bilirubin 0.6mg/dL (0.0-1.2) Aspartate Amino Transf (AST/SGOT) 14U/L (0-50) Alanine Aminotransferase (ALT/SGPT) 11U/L (0-44) Alkaline Phosphatase 59U/L (25-160) Total Protein 5.5g/dL (6.4-8.4) Albumin 3.0g/dL (3.4-5.0) Discharge Medications Discharge Medications Doxazosin (Cardura) 8 Mg Tablet 8 MG PO HS (Reported) Enoxaparin Sodium (Enoxaparin Sodium) 40 Mg/0.4 Ml Syringe 40 MG SUBQ Q24 Prescribed by: JOSE RIOS Insulin Detemir (Levemir U100 Insulin Vial) 100 Unit/1 Ml Vial 30 UNIT SUBQ QPM (Reported) Insulin Detemir (Levemir U100 Insulin Vial) 100 Unit/1 Ml Vial 20 UNIT SUBQ QAM Prescribed by: SANDRA ADAIR DO Levothyroxine (Levothyroxine) 200 Mcg Tablet 225 MCG PO DAILY (Reported) As needed Docusate Sodium (Colace) 100 Mg Capsule 100 MG PO BID PRN PRN For Constipation Prescribed by: JOSE RIOS Hydroxyzine Pamoate (HydrOXYzine Pamoate) 25 Mg Capsule 25 MG PO Q4H PRN PRN For Spasm and/or Restlessness Prescribed by: JOSE RIOS Insulin Lispro (Humalog Kwikpen) 200 Unit/Ml (3 Ml) Insuln.pen 15-20 UNIT SQ PRN sliding scale blood glucose (Reported) oxyCODONE-Acetaminophen 5-325 mg (oxyCODONE-Acetaminophen 5-325 mg) 1 Each Tablet 1-2 TAB PO Q4H PRN PRN For Pain Prescribed by: JOSE RIOS Followup Plan Follow-up plan Follow up with PCP in 2 weeks Discharge Diet: Diabetic Discharge Activity: Other Patient Instructions Weightbearing: Weightbearing as tolerated with walker DVT prophylaxis: Lovenox 40 mg subcutaneous 2 weeks followed by aspirin 81 mg twice a day 4 weeks Physical therapy for transfers, progressive ambulation, therapeutic exercise Wound care: Dressing changed today by PA Discharge plan: Discharge home today Discharge instructions are reviewed with the patient. Follow-up plan: In 2 weeks at [facility] with PA for wound check and at [address] Weaver with x-rays Sandra Adair DO Oct 30, 2016 10:31
== END 2016-10-28 11:26 | disposition home or self-care (01) | DRG 470 ==
LOC: SAS 05:35 → OSC 13:12
PROVIDERS: ADMIT Orthopaedic Surgery; ATTEND Orthopaedic Surgery
PROC: 0SRB0JA Replacement of Left Hip Joint with Synthetic Substitute, Uncemented, Open Approach (ICD-10-PCS; principal; 2016-10-26 08:00)
DX: M16.52 Unilateral post-traumatic osteoarthritis, left hip (principal); T84.115A Breakdown (mechanical) of internal fixation device of left femur, initial encounter; I10 Essential (primary) hypertension; E03.9 Hypothyroidism, unspecified; N40.0 Benign prostatic hyperplasia without lower urinary tract symptoms; Z87.891 Personal history of nicotine dependence; E10.65 Type 1 diabetes mellitus with hyperglycemia